=== PATIENT | female | born 1970 | race Caucasian/White ===

== ENCOUNTER 2017-03-01 14:31 | Emergency (ER) | payer BC, OTHER ==
[~2017-03-01] VITALS: Ht 160 cm; Wt 108.5 kg
[~2017-03-01 14:31] MED LIST: CIPR1TAB11 PO; METR-163 PO; PRLSR20 PO; SERT25TA PO
[2017-03-01 14:38] VITALS: TEMP 36.5; Ht 160 cm; Wt 108.5 kg
--- NOTE | 2017-03-01 17:02 | EMERGENCY ROOM VISIT NOTE ---
History Report prepared by Giuliana: Chris Caro Under the Supervision of: Dr. Medardo Lima M.D. First contact with patient: 16:38 Chief Complaint: IRREGULAR HEARTBEAT Stated Complaint: IRREGULAR HEARTBEAT/HIGH BP Nursing Triage Summary: Pt states irregular heart beat since Wed. SOB. Pt states, "I feel a heaviness on my chest and I find myself sighing a lot so I guess I am sob." Denies dizziness or lightheaded. Denies hx of anxiety. States similar sx in the past, but have not lasted this long before. History of Present Illness The patient is a 46 year old white female with a past medical history of GERD, depression, total hysterectomy, and chronic back spasms who presents to the ED with a cc of intermittent heart palpitations beginning a week ago. Describes it has "flutters". Positive left chest "heaviness" and headache. No modifying factors. Negative fevers, chills, leg pain, cough, SOB, nausea, vomiting. On Flexeril regularly for back spasms, Zoloft for depression, and a medication for GERD. No recent travel. No drug, alcohol or tobacco use. No recent falls or trauma. Has not had anything to drink today. Normally drinks 24 oz of caffeinated tea every day. Source of History: patient Onset: A week ago Quality: other (heart palpitations) Timing: intermittent Modifying Factors (Worsening): other (none) Modifying Factors (Relieving): other (none) Associated Symptoms: + headache, + chest pain (left sided "heaviness"), No fevers, No chills, No cough, No SOB, No nausea, No vomiting Note: Negative: leg pain. Review of Systems See HPI for pertinent positives and negatives. A total of ten systems were reviewed and were otherwise negative. Past Medical & Surgical Medical Problems: (1) Diverticulitis Family History Cancer Diabetes mellitus Gallbladder disease Heart disease Hypertension Lung disease Social History Smoking Status: Former Smoker Alcohol Use: occasionally Marital Status: in relationship Housing Status: lives with significant other Occupation Status: employed Current/Historical Medications Scheduled Cyclobenzaprine Hcl (Flexeril), 1 TAB PO TID Omeprazole (Prilosec), 20 MG PO BID Sertraline (Zoloft), 25 MG PO DAILY Allergies Coded Allergies: Naproxen (Verified Allergy, Intermediate, SWELLING/HIVES, 03/01/17) Ibuprofen (Verified Allergy, Mild, HIVES, 03/01/17) Penicillins (Verified Allergy, Mild, RESP, 03/01/17) Aspirin (Verified Allergy, Unknown, SWELLING, 03/01/17) Morphine (Verified Allergy, Unknown, HIVES, 03/01/17) Physical Exam Vital Signs Date Time Temp Pulse Resp B/P (MAP) Pulse Ox O2 Delivery O2 Flow Rate FiO2 03/01/17 19:00 86 17 122/86 95 Room Air 03/01/17 18:14 87 19 141/102 97 Room Air 03/01/17 17:05 86 17 121/90 98 Room Air 03/01/17 17:04 98 Room Air 03/01/17 16:55 87 03/01/17 14:38 36.5 87 18 141/94 96 Room Air Physical Exam GENERAL: Awake, alert, well-appearing, NAD HENT: Normocephalic, atraumatic. EYES: Normal conjunctiva. Sclera non-icteric. NECK: Supple. No nuchal rigidity. FROM. RESPIRATORY: CTAB, no rhonchi, wheezing, crackles CARDIAC: RRR, no MRG ABDOMEN: Soft, NTND, BS+ MSK: No chest wall TTP, no LE edema NEURO: GCS 15, CN 2-12 intact, moves all 4s on command SKIN: No rash or jaundice noted. Medical Decision & Procedures ER Provider Diagnostic Interpretation: Radiology results as stated below per my review and radiologist interpretation: CHEST ONE VIEW PORTABLE FINDINGS: The cardiac and mediastinal contours are normal. There is no evidence of focal pulmonary consolidation. There is no evidence of failure. No pleural effusions are visualized.[ A small linear opacity at left lung base is felt to be atelectatic. IMPRESSION: No active disease in the chest. Electronically signed by: Will Herron M.D. 03/01/2017 5:12 PM Laboratory Results 03/01/17 17:00 Red Blood Count 4.67, Mean Corpuscular Volume 86.7, Mean Corpuscular Hemoglobin 28.3, Mean Corpuscular Hemoglobin Concent 32.6, Mean Platelet Volume 10.3, Neutrophils (%) (Auto) 50.9, Lymphocytes (%) (Auto) 39.8, Monocytes (%) (Auto) 5.3, Eosinophils (%) (Auto) 3.6, Basophils (%) (Auto) 0.3, Neutrophils # (Auto) 3.92, Lymphocytes # (Auto) 3.07, Monocytes # (Auto) 0.41, Eosinophils # (Auto) 0.28, Basophils # (Auto) 0.02 03/01/17 17:00 Test 03/01/17 17:00 White Blood Count 7.71 K/uL (4.8-10.8) Red Blood Count 4.67 M/uL (4.2-5.4) Hemoglobin 13.2 g/dL (12.0-16.0) Hematocrit 40.5 % (37-47) Mean Corpuscular Volume 86.7 fL (80-100) Mean Corpuscular Hemoglobin 28.3 pg (25-34) Mean Corpuscular Hemoglobin Concent 32.6 g/dl (32-36) Platelet Count 275 K/uL (130-400) Mean Platelet Volume 10.3 fL (7.4-10.4) Neutrophils (%) (Auto) 50.9 % Lymphocytes (%) (Auto) 39.8 % Monocytes (%) (Auto) 5.3 % Eosinophils (%) (Auto) 3.6 % Basophils (%) (Auto) 0.3 % Neutrophils # (Auto) 3.92 K/uL (1.4-6.5) Lymphocytes # (Auto) 3.07 K/uL (1.2-3.4) Monocytes # (Auto) 0.41 K/uL (0.11-0.59) Eosinophils # (Auto) 0.28 K/uL (0-0.5) Basophils # (Auto) 0.02 K/uL (0-0.2) RDW Standard Deviation 44.6 fL (36.4-46.3) RDW Coefficient of Variation 14.1 % (11.5-14.5) Immature Granulocyte % (Auto) 0.1 % Immature Granulocyte # (Auto) 0.01 K/uL (0.00-0.02) Prothrombin Time 9.7 SECONDS (9.0-12.0) Prothromb Time International Ratio 0.9 (0.9-1.1) Activated Partial Thromboplast Time 30.1 SECONDS (21.0-31.0) Partial Thromboplastin Ratio 1.2 Anion Gap 6.0 mmol/L (3-11) Est Creatinine Clear Calc Drug Dose 88.3 ml/min Estimated GFR () 84.8 Estimated GFR (Non- 73.2 BUN/Creatinine Ratio 14.7 (10-20) Calcium Level 9.1 mg/dl (8.5-10.1) Phosphorus Level 3.6 mg/dl (2.5-4.9) Magnesium Level 2.5 mg/dl (1.8-2.4) Total Bilirubin 0.2 mg/dl (0.2-1) Direct Bilirubin < 0.1 mg/dl (0-0.2) Aspartate Amino Transf (AST/SGOT) 16 U/L (15-37) Alanine Aminotransferase (ALT/SGPT) 33 U/L (12-78) Alkaline Phosphatase 89 U/L (45-117) Troponin I < 0.015 ng/ml (0-0.045) Pro-B-Type Natriuretic Peptide 39 pg/ml (0-450) Total Protein 7.6 gm/dl (6.4-8.2) Albumin 3.8 gm/dl (3.4-5.0) Lipase 223 U/L (73-393) Laboratory results reviewed by me ECG Indication: palpitations Rate (beats per minute): 85 Rhythm: normal sinus Findings: T-wave inversion (V2, likely due to lead placement as TWI is positive in V1), other (Normal intervals. Normal axis. No other STS changes or TWI. ) ED Course 1655: The patient was evaluated in room B11B. A complete history and physical exam was performed. 1904: I reevaluated the patient. Discussed results and discharge instructions: she verbalized understanding and agreement. The patient is ready for discharge. Medical Decision The patient is a 46 year old white female with a past medical history of GERD, depression, total hysterectomy, and chronic back spasms who presents to the ED with a cc of intermittent heart palpitations beginning a week ago. Differential diagnosis: Etiologies such as premature contractions, electrolyte abnormality, cardiac dysrhythmia, thyroid dysfunction, pulmonary embolism, infection, gastrointestinal, as well as others were entertained. Patient was seen and evaluated the bedside. Patient had been complaining of some palpitations. Patient states she was at her office today and works in the [employer]. Patient states that a nurse listened to her heart beat and stated that it was irregular. Patient came here for further evaluation. She did complain of some mild chest heaviness. She described it as central and left-sided. It did not radiate. She denies any nausea, vomiting , diaphoresis. Patient has no early cardiac history and other siblings or parents. Patient is a former smoker but has not smoked in 3 years. Patient has no other medical problems. Patient did have blood work completed along with an EKG, chest x-ray, and troponin. Patient's EKG did show normal sinus tachycardia. I believe that lead placement was inappropriate as the patient did have a T-wave inversion in V2 but not in V1. Patient's troponin was negative. Patient TSH normal. Patient's other lab work fairly unremarkable. I did discuss findings with the patient. Patient heart score less than 2 thus less likely ACS or to suffer a complication the next 30 days. Patient was instructed to follow-up with her primary care physician discuss further management and treatment and a possible Holter monitor. Patient has a low risk score for PE. PERC neg. Less likely PE. Patient deemed suitable for outpatient follow-up and discharge.Patient was given strict follow-up, discharge , and return precautions. All questions were answered. Patient was deemed suitable for outpatient follow-up at this time. Patient agreed with the plan of care and was safely discharged home. Medication Reconcilliation Current Medication List: was personally reviewed by me Blood Pressure Screening Patient's blood pressure: Normal blood pressure Blood pressure disposition: Did not require urgent referral Impression Primary Impression: Palpitations Scribe Attestation The scribe's documentation has been prepared under my direction and personally reviewed by me in its entirety. I confirm that the note above accurately reflects all work, treatment, procedures, and medical decision making performed by me. Departure Information Dispostion Home / Self-Care Referrals Andi Spears M.D.([facility]) (PCP) Patient Instructions [facility], [facility] Additional Instructions Please return to the emergency department if you have worsening or recurrent symptoms not amenable to at-home treatment. Please call for a follow-up appointment with her primary care physician. Please take your medications as prescribed. If you have other concerns and/or complaints please feel free to also call your primary care physician's office or return the ED for further evaluation, management, and treatment. Please follow up with your PCP and discuss if further follow up and evaluation is necessary. Take your medications as prescribed. You have been examined and treated today on an emergency basis only. This is not a substitute for, or an effort to provide, complete comprehensive medical care. It is impossible to recognize and treat all injuries or illnesses in a single emergency department visit. It is therefore important that you follow up closely with [facility], your PCP, and/or your specialist(s). Call as soon as possible for an appointment. Thank you for your time and consideration. I look forward to speaking with you again soon. Please don't hesitate to call us if you have any questions.
[2017-03-01 17:04] VITALS: O2SAT 98
--- NOTE | 2017-03-01 17:13 | DIAGNOSTIC IMAGING REPORT ---
CHEST ONE VIEW PORTABLE CLINICAL HISTORY: Atypical chest pain COMPARISON STUDY: No previous studies for comparison. FINDINGS: The cardiac and mediastinal contours are normal. There is no evidence of focal pulmonary consolidation. There is no evidence of failure. No pleural effusions are visualized.[ A small linear opacity at left lung base is felt to be atelectatic. IMPRESSION: No active disease in the chest. Electronically signed by: Will Herron M.D. 03/01/2017 5:12 PM Dictated Date/Time: 03/01/2017 5:11 PM
[2017-03-01 17:16] LABS: BASO % 0.3 %; BASO ABS # 0.02 K/uL (0-0.2); COMPLETE YES; EOS % 3.6 %; HEMATOCRIT 40.5 % (37-47); IG% 0.1 %; LYMPH % 39.8 %; LYMPH ABS # 3.07 K/uL (1.2-3.4); MEAN CELL VOLUME 86.7 fL (80-100); MEAN CORPUSCULAR HEMOGLOBIN 28.3 pg (25-34); MEAN CORPUSCULAR HGB CONC 32.6 g/dl (32-36); MEAN PLATELET VOLUME 10.3 fL (7.4-10.4); MONO % 5.3 %; NEUT % 50.9 %; PLATELET COUNT 275 K/uL (130-400); RED BLOOD COUNT 4.67 M/uL (4.2-5.4); WHITE BLOOD COUNT 7.71 K/uL (4.8-10.8)
[2017-03-01] MEDS ORDERED: CYCL10TA6 PO (17:18)
[2017-03-01 17:28] LABS: INR 0.9 (0.9-1.1); PARTIAL THROMBOPLASTIN RATIO 1.2; PROTHROMBIN TIME (PATIENT) 9.7 SECONDS (9.0-12.0)
[2017-03-01 18:00] LABS: POTASSIUM 4.2 mmol/L (3.5-5.1); SODIUM 139 mmol/L (136-145)
[2017-03-01 18:02] LABS: ALKALINE PHOSPHATASE 89 U/L (45-117); ALT/SGPT 33 U/L (12-78); BLOOD UREA NITROGEN 14 mg/dl (7-18); BUN/CREATININE RATIO 14.7 (10-20); CALCIUM 9.1 mg/dl (8.5-10.1); CARBON DIOXIDE 28 mmol/L (21-32); CHLORIDE 105 mmol/L (98-107); CREATININE 0.93 mg/dl (0.60-1.20); GLUCOSE 87 mg/dl (70-99); PHOSPHORUS 3.6 mg/dl (2.5-4.9)
[2017-03-01 18:13] LABS: AST/SGOT 16 U/L (15-37); MAGNESIUM 2.5 mg/dl (1.8-2.4)
[2017-03-01 19:00] VITALS: BP 122/86; PULSE 86; O2SAT 95
== END 2017-03-01 19:03 | disposition home or self-care (01) ==
LOC: C.EDB 14:34
DX: R00.2 Palpitations (principal); K21.9 Gastro-esophageal reflux disease without esophagitis; F32.9 Major depressive disorder, single episode, unspecified; K57.92 Diverticulitis of intestine, part unspecified, without perforation or abscess without bleeding; Z79.899 Other long term (current) drug therapy; Z87.891 Personal history of nicotine dependence; Z88.0 Allergy status to penicillin; Z88.5 Allergy status to narcotic agent; Z88.6 Allergy status to analgesic agent; Z88.8 Allergy status to other drugs, medicaments and biological substances; Z80.9 Family history of malignant neoplasm, unspecified; Z83.3 Family history of diabetes mellitus; Z83.79 Family history of other diseases of the digestive system; Z82.49 Family history of ischemic heart disease and other diseases of the circulatory system